=== PATIENT | female | born 1950 | race Caucasian/White ===

== ENCOUNTER 2021-01-10 10:36 | Outpatient (CLI) | payer MEDICARE, OTHER, SELFPAY ==
--- NOTE | 2021-01-10 12:00 | NEURO_ITS ---
Impression: # Complains of hand weakness. # No Carpal Tunnel Syndrome. # No ulnar nerve responses noted. # Significant neurogenic changes in both hands #Even though problem could be related to ulnar nerve but the possibility of cervical pathology needs to be ruled out. Nerve Conduction Studies Anti Sensory Summary Table Stim Site NR Peak (ms) P-T Amp (?V) Site1 Site2 Delta-P (ms) Dist (cm) Smith (m/s) Left Median Anti Sensory (2-3nd Digit) Wrist 3.8 24.6 Wrist 2-3nd Digit 3.8 14.0 37 Wrist 3.6 20.6 Wrist 2-3nd Digit 3.8 14.0 37 Right Median Anti Sensory (2-3nd Digit) Wrist 3.8 11.1 Wrist 2-3nd Digit 3.8 14.0 37 Wrist 3.7 7.2 Wrist 2-3nd Digit 3.8 14.0 37 Left Radial Anti Sensory (Base 1st Digit) Wrist 2.6 13.8 Wrist Base 1st Digit 2.6 0.0 Right Radial Anti Sensory (Base 1st Digit) Wrist 2.8 9.8 Wrist Base 1st Digit 2.8 0.0 Left Ulnar Anti Sensory (5th Digit) NO RESPONSE Wrist NR Wrist 5th Digit 14.0 Right Ulnar Anti Sensory (5th Digit) Wrist 2.8 19.8 Wrist 5th Digit 2.8 14.0 50 Motor Summary Table Stim Site NR Onset (ms) O-P Amp (mV) Site1 Site2 Delta-0 (ms) Dist (cm) Smith (m/s) Left Median Motor (Abd Poll Brev) Wrist 3.7 3.1 Elbow Wrist 5.8 30.0 52 Elbow 9.5 2.0 Right Median Motor (Abd Poll Brev) Wrist 3.8 2.8 Elbow Wrist 5.3 28.0 53 Elbow 9.1 1.6 Left Ulnar Motor (Abd Dig Minimi) NO RESPONSE Wrist NR A Elbow Wrist 30.0 A Elbow NR Right Ulnar Motor (Abd Dig Minimi) NO RESPONSE Wrist NR A Elbow Wrist 0.0 A Elbow NR F Wave Studies NR F-Lat (ms) L-R F-Lat (ms) Left Median (Mrkrs) (Abd Poll Brev) 29.31 0.82 Right Median (Mrkrs) (Abd Poll Brev) 30.12 0.82 Left Ulnar (Mrkrs) (Abd Dig Min) 30.47 Right Ulnar (Mrkrs) (Abd Dig Min) DISPERSED RESPONSE NR EMG Side Muscle Nerve Root Ins Act Fibs Amp Dur Recrt Comment Right 1stDorInt Ulnar C8-T1 Nml Nml Decr >12ms Reduced Right Ext Indicis Radial (Post Int) C7-8 Nml Nml Nml Nml Nml Right Ext Digitorum Radial (Post Int) C7-8 Nml Nml Nml Nml Nml Right BrachioRad Radial C5-6 Nml Nml Nml Nml Nml Right PronatorTeres Median C6-7 Nml Nml Nml Nml Nml Right Abd Poll Brev Median C8-T1 Nml Nml Decr >12ms Reduced Left 1stDorInt Ulnar C8-T1 Nml Nml Decr >12ms Reduced Left Ext Indicis Radial (Post Int) C7-8 Nml Nml Nml Nml Nml Left Ext Digitorum Radial (Post Int) C7-8 Nml Nml Nml Nml Nml Left BrachioRad Radial C5-6 Nml Nml Nml Nml Nml Left PronatorTeres Median C6-7 Nml Nml Nml Nml Nml Left Abd Poll Brev Median C8-T1 Nml Nml Decr >12ms Reduced Right ABD Dig Min Ulnar C8-T1 Nml Nml Decr >12ms Reduced Left ABD Dig Min Ulnar C8-T1 Nml Nml Decr >12ms Reduced Right Biceps Musculocut C5-6 Nml Nml Nml Nml Nml Right Deltoid Axillary C5-6 Nml Nml Nml Nml Nml MTDD
== END 2021-01-10 10:37 | disposition home or self-care (01) ==
PROVIDERS: PCP Family Medicine; Visit Provider Plastic Surgery
DX: M62.81 Muscle weakness (generalized) (principal)
CPT/HCPCS: 95886; 95911

== ENCOUNTER → 2021-06-22 10:00 | Outpatient (CLI) | payer MEDICARE, OTHER, SELFPAY ==
--- NOTE | ~2021-06-22 | MR_ITS ---
EXAMINATION: MR cervical spine wo con DATE: 06/22/2021 10:49 INDICATION: Cervical radiculopathy. TECHNIQUE: Magnetic resonance imaging (MRI) of the cervical spine was performed without intravenous c ontrast. Sequences included sagittal T2-weighted FSE, sagittal STIR FSE, sagittal T1-weighted FSE, ax ial MERGE, and axial T2-weighted FSE. COMPARISON: None FINDINGS: There is 3 mm anterolisthesis of C3 on C4 and 2 mm anterolisthesis of C4 on C5. There is 2 mm retrolisthesis of C5 on C6. Vertebral body heights are normal. There is mildly decreased disc heig ht at C3-C4 and C4-C5 and severely decreased disc height at C5-C6 and C6-C7. The spinal cord signal i ntensity is normal. The following disc levels are specifically discussed: C2-C3: The disc does not extend beyond the endplate margin. There is mild right uncovertebral joint o steoarthritis. There is severe right and mild left facet joint osteoarthritis. There is mild right ne ural foraminal stenosis. There is no central canal stenosis. C3-C4: There is a central extrusion. There is mild right and moderate left uncovertebral joint osteoa rthritis. There is severe bilateral facet joint osteoarthritis. There is moderate bilateral neural fo raminal stenosis. There is moderate central canal stenosis with ventral and dorsal indentation of the spinal cord. C4-C5: The disc is bulging. There is mild right and severe left uncovertebral joint osteoarthritis. T here is severe bilateral facet joint osteoarthritis. There is mild bilateral neural foraminal stenosi s. There is mild central canal stenosis. C5-C6: The disc is bulging. There is severe bilateral uncovertebral joint osteoarthritis. There is no facet joint osteoarthritis. There is moderate bilateral neural foraminal stenosis. There is mild dirk tral canal stenosis with ventral indentation of spinal cord. C6-C7: The disc is bulging. There is severe bilateral uncovertebral joint osteoarthritis. There is mo derate right and severe left facet joint osteoarthritis. There is mild right and moderate left neural foraminal stenosis. There is mild central canal stenosis. C7-T1: There is a central protrusion. There is no uncovertebral joint osteoarthritis. There is severe right and mild left facet joint osteoarthritis. There is mild bilateral neural foraminal stenosis. T here is mild central canal stenosis. IMPRESSION: 1. Severe cervical spondylosis. Reviewed, dictated and finalized at location A. PREVENTION CHIEF
== END ==
PROVIDERS: PCP Family Medicine; Visit Provider Physical Medicine & Rehabilitation Pain Medicine
DX: M47.812 Spondylosis without myelopathy or radiculopathy, cervical region (principal)
CPT/HCPCS: 72141

== ENCOUNTER → 2023-06-03 10:40 | Outpatient (CLI) | payer MEDICARE, SELFPAY ==
--- NOTE | ~2023-06-03 | XR_ITS ---
XR hip RT 2V w AP pelvis DATE: 06/03/2023 11:41 INDICATION: Right hip pain TECHNIQUE: AP pelvis. AP and lateral views of right hip. COMPARISON: None FINDINGS: There is osteopenia. There is loss of height at L4 likely due to chronic fracture deformity. There is mild lumbar dextrosc oliosis. There is multilevel degenerative disc disease of the lumbar spine. Normal alignment at the pubic symphysis and sacroiliac joints. No pelvic fracture or bone destruction is detected. Hip joint spaces are symmetric and relatively pre served, with mild degenerative spurring. No fracture or dislocation, avascular necrosis or bone destruction of the right hip is detected. 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
== END ==
PROVIDERS: PCP Physician Assistant Medical; Visit Provider Physician Assistant Medical
DX: M25.551 Pain in right hip (principal); M85.89 Other specified disorders of bone density and structure, multiple sites; M16.0 Bilateral primary osteoarthritis of hip; M51.36 Other intervertebral disc degeneration, lumbar region
CPT/HCPCS: 73502

== ENCOUNTER 2024-01-09 10:49 | Outpatient (CLI) | payer MEDICARE, SELFPAY ==
--- NOTE | ~2024-01-09 | MR_ITS ---
Procedure: MR lumbar spine wo con Ordering provider: Bobbi Guillen MD History: . M47.816 - Spondylosis without myelopathy or radiculopathy... . Comparison: None. Technique: MRI lumbar spine without contrast. FINDINGS: SPINAL CORD: Normal. Cord ends at the level of T12. VERTEBRAL BODIES: Normal height and alignment. No compression fracture. Normal marrow signal. Postope rative changes extending from L1 to L3. Laminectomy extending from L1 to L5. DISK SPACES: Narrowing of all the disc spaces except L5-S1. Facet joint disease at the level of T12-L1. STENOSIS: Mild to moderate spinal canal stenosis at the level of T12-L1. Diffuse disc bulge with bila teral narrowing of the foramina and the root compression. Diffuse disc bulge at the level of L3-L4 with narrowing of the right foramen and with compression. Diffuse disc bulge at the level of L5-S1 with bilateral narrowing of the foramina. Right nerve root c ompression. PARASPINOUS SOFT TISSUES: Normal. IMPRESSION: No compression fracture. Postoperative changes. Multilevel disc bulges with spinal canal stenosis, foraminal narrowing and nerve root compression. Reviewed, dictated and finalized at location A. IMPRESSION: No compression fracture. Postoperative changes. Multilevel disc bulges with spinal canal stenosis, foraminal narrowing and nerv e root compression.
== END 2024-01-09 10:50 ==
LOC: MICIMG 10:51
PROVIDERS: PCP Family Medicine; Visit Provider Family Medicine
DX: M47.816 Spondylosis without myelopathy or radiculopathy, lumbar region (principal); M48.05 Spinal stenosis, thoracolumbar region; G95.29 Other cord compression; Z98.890 Other specified postprocedural states
CPT/HCPCS: 72148

== ENCOUNTER 2025-01-20 10:30 | Outpatient (RCR) | payer MEDICARE, SELFPAY ==
--- NOTE | 2025-01-12 14:54 | OPREHPOC ---
Outpatient Therapy Plan of Care This is a Multidisciplinary Plan of Care that may contain components documented by all disciplines (PT, OT, and ST.) PT Problem 1 PT Problem #1 Knowledge Deficit PT Goal 1 Goal / Goal Update 1. Patient will perform independent HEP 2. Patient will verbalize urge suppression strategies Target Visit 2 PT Problem 2 PT Problem #2 Pain PT Goal 1 Goal / Goal Update 1. Pain from prolapse no higher than 2/10 Target Visit 4 PT Problem 3 PT Problem #3 Impaired Functional ADLs PT Goal 1 Goal / Goal Update 1. Patient will report incontinence no more than 1 time a day 2. Symptoms of prolapse will not affect ADL's for at least 2 weeks Target Visit 4 PT Problem 4 PT Problem #4 Impaired Strength PT Goal 1 Goal / Goal Update 1. Improve hip abduction to 4/5 ajay Target Visit 4
--- NOTE | 2025-01-12 14:54 | PTOPEVAL1 ---
Assessment and note entered by Darlene Gibbs DPT Evaluation Information Assessment Status Evaluation Diagnosis n81.89 ICD-10 Condition Codes (PT) Weakness R53.1,Pelvic and perineal pain R10.2, Stress incontinence N39.3 Subjective Information Pt reports she has been diagnosed with a prolapse. Has been told she can try therapy or surgery. Pt has had 6 back surgeries and currently ambulates with a walker. Voids about 10 times a day, often up at night many times as well. Urinary incontinence all day and has had that for years. Wears pantiliners all the time. Can hold urge to void up to 5 minutes. Denies pain with urination. Feels heaviness and pain from the prolapse, some days worse than others. BM multiple times a day. Takes fiber gummies. History of pain with pap smears and pelvic exams. Pt has been 1 time, 1 C- section delivery. 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 Patient goal: avoid the surgery Return to MD is not scheduled. Reported Pain Level Pain Score 0: Self Report Assessment PT Clinical Summary The patient is presenting to skilled physical therapy with diagnosis of pelvic organ prolapse, urinary urgency, and daily stress incontinence. She presents with decreased hip and abdominal strength, and likely significantly decreased pelvic floor strength. No external or internal pelvic exam this visit due to patient request, will attempt in future visits if consent given. She will benefit from therapy to address strengthening in order to reduce symptoms of prolapse as well as daily incontinence in order to improve function. Plan of Care Interventions Electrical Stimulation,Hot Pack/Cold Pack,Manual Therapy,Neuro Re-education,Patient/Caregiver Education,Therapeutic Activities,Therapeutic Exercise PT Services Indicated Yes Treatment Frequency and 1 time a week for 4 visits Duration These treatments will address the objective and functional deficits as defined above. The patient will be advanced safely and appropriately in order for the patient to progress towards his/her prior level of function. Additional exercises will be introduced and as well as a comprehensive home exercise program upon discharge, if needed, ?to ensure carryover of functional gains achieved in the clinic. This treatment plan has been reviewed and agreement upon by the patient.
--- NOTE | 2025-02-12 11:53 | OPREHPOC ---
Outpatient Therapy Plan of Care This is a Multidisciplinary Plan of Care that may contain components documented by all disciplines (PT, OT, and ST.) PT Problem 1 PT Problem #1 Knowledge Deficit PT Goal 1 Goal / Goal Update 1. Patient will perform independent HEP 2. Patient will verbalize urge suppression strategies Target Visit 2 Progress Met PT Problem 2 PT Problem #2 Pain PT Goal 1 Goal / Goal Update 1. Pain from prolapse no higher than 2/10 Target Visit 4 Progress Not Met PT Problem 3 PT Problem #3 Impaired Functional ADLs PT Goal 1 Goal / Goal Update 1. Patient will report incontinence no more than 1 time a day 2. Symptoms of prolapse will not affect ADL's for at least 2 weeks Target Visit 4 Progress Not Met PT Problem 4 PT Problem #4 Impaired Strength PT Goal 1 Goal / Goal Update 1. Improve hip abduction to 4/5 ajay Target Visit 4 Progress Not Met
--- NOTE | 2025-02-12 11:53 | PTOPDC ---
Assessment and note entered by Darlene Gibbs DPT Evaluation Information Assessment Status Discharge Diagnosis n81.89 ICD-10 Condition Codes (PT) Weakness R53.1,Pelvic and perineal pain R10.2, Stress incontinence N39.3 Subjective Information Pt is voiding 7-8 times a day per bladder diary. Pt has still been wearing pantiliners, states she is only noticing urinary incontinence with navigating her stairs. Can hold urge to void 5 minutes. Pt reports she still notices the prolapse and that it still feels heavy and painful at times which is her biggest concern. Reported Pain Level Pain Score 0: Self Report Assessment PT Clinical Summary Patient is self discharging at this time due to transportation issues. She continues to report symptoms of prolapse and she was educated in a thorough HEP as well as how to progress independently in order to continue working toward goals. She has been educated to follow up with MD and/or PT as needed. Plan of Care PT Services Indicated No
== END 2025-02-12 14:05 | disposition home or self-care (01) ==
LOC: ANHPT 10:30
PROVIDERS: Visit Provider Nurse Practitioner Obstetrics & Gynecology
DX: N81.89 Other female genital prolapse (principal)
CPT/HCPCS: 97112; 97161; 97530

== ENCOUNTER 2025-03-19 10:57 | Outpatient (CLI) | payer MEDICARE, SELFPAY ==
--- NOTE | ~2025-03-19 | XR_ITS ---
[id number] 03/19/2025 11:36 Indication: Cervicalgia Procedure: 5 views cervical spine Comparison: 06/09/2019 Findings: Vertebral body heights are maintained. No prevertebral soft tissue swelling. There is degenerative anterolisthesis at C3-4 measuring 4 mm. There is degenerative anterolisthesis at C4-5 measuring 2 mm. There is disc narrowing at C5-6 and C6-7. There is advanced degenerative changes of the facet and uncinate joints. Impression: 1: Severe cervical spondylosis which has progressed significantly at C3-4. Reviewed, dictated and finalized at location O. Impression: 1: Severe cervical spondylosis which has progressed significantly at C3-4.
== END 2025-03-19 10:58 | disposition home or self-care (01) ==
LOC: MICIMG 10:59
PROVIDERS: PCP Student in an Organized Health Care Education/Training Program; Visit Provider Student in an Organized Health Care Education/Training Program
DX: M47.812 Spondylosis without myelopathy or radiculopathy, cervical region (principal)
CPT/HCPCS: 72040